=== PATIENT | male | born 2000 | race Caucasian/White ===

== ENCOUNTER 2022-03-10 11:31 | Emergency (ER) | payer MEDICAID ==
[~2022-03-10] VITALS: Ht 172.7 cm; Wt 81.6 kg
[2022-03-10 11:43] VITALS: BP 124/73
--- NOTE | 2022-03-10 11:43 | NUR ---
BIBS C/O SCALP PAIN AND ITCHING NOTED "BUMPS" X 6 DAYS, REQUESTING ANTI FUNGAL. VITALS ARE WITHIN NORMAL LIMITS. AWAITING MD ORDERS.
--- NOTE | 2022-03-10 12:13 | NUR ---
Patient discharged to home in stable condition. Written and verbal after care instructions given. Patient verbalizes understanding of instruction.
== END 2022-03-10 12:14 | disposition home or self-care (01) ==
LOC: ER 11:37
DX: L21.9 Seborrheic dermatitis, unspecified (principal)